=== PATIENT | male | born 1955 | race African-American/Black ===

== ENCOUNTER 2018-08-21 09:19 | Emergency (ER) | payer MEDICAID, OTHER ==
[~2018-08-21] VITALS: Ht 180.3 cm; Wt 84.0 kg
[2018-08-21] MEDS ORDERED: IBUPROFEN 800MG TABLET PO ONE (11:15)
[2018-08-21 11:41] VITALS: BP 130/72
== END 2018-08-21 11:45 | disposition home or self-care (01) ==
LOC: ER 09:19
DX: M67.48 Ganglion, other site (principal); G89.29 Other chronic pain; M54.2 Cervicalgia; M54.89 Other dorsalgia; R03.0 Elevated blood-pressure reading, without diagnosis of hypertension
CPT/HCPCS: 99283